=== PATIENT | female | born 1985 | race Caucasian/White ===

== ENCOUNTER 2017-09-08 22:47 | Emergency (ER) | payer OTHER ==
[~2017-09-08] VITALS: Ht 157.5 cm; Wt 93.9 kg
[~2017-09-08 22:47] MED LIST: APAP/CODEI12 MG/5 M1 PO; BACTRIM DS TAB1 EACH PO; NOHOMEMEDICATIONS; NORCO 5-325 TA1 EACH PO; ZPAK PO
[2017-09-08 22:59] VITALS: BP 122/76
== END 2017-09-09 00:54 ==
LOC: ER 22:47
DX: S63.653A Sprain of metacarpophalangeal joint of left middle finger, initial encounter (principal); L02.411 Cutaneous abscess of right axilla; F17.210 Nicotine dependence, cigarettes, uncomplicated; X58.XXXA Exposure to other specified factors, initial encounter; Y93.89 Activity, other specified; Y92.89 Other specified places as the place of occurrence of the external cause; Y99.8 Other external cause status